=== PATIENT | male | born 1970 | race African-American/Black ===

== ENCOUNTER 2019-01-02 22:46 | Emergency (ER) | payer OTHER | END 2019-01-02 22:50 | disposition left against medical advice (07) | LOC: M.ERS 22:46 | DX: Z53.21 Procedure and treatment not carried out due to patient leaving prior to being seen by health care provider (principal) ==

== ENCOUNTER 2019-01-26 17:12 | Emergency (ER) | payer OTHER ==
[~2019-01-26] VITALS: Ht 172.7 cm; Wt 79.4 kg
[2019-01-26] MEDS ORDERED: CLONIDINE0.1 PO (17:20)
[2019-01-26] MEDS ORDERED: BENADRYL25 MG PO (18:02)
[2019-01-26] MEDS ORDERED: PREDNISONE 20 M20 MG PO (18:02)
[2019-01-26] MEDS ORDERED: PEPCID20 MG PO (18:02)
[2019-01-26 18:22] VITALS: BP 143/84
== END 2019-01-26 18:23 | disposition home or self-care (01) ==
LOC: M.ERS 17:12
DX: T78.1XXA Other adverse food reactions, not elsewhere classified, initial encounter (principal); I10 Essential (primary) hypertension; Z88.6 Allergy status to analgesic agent; Z91.013 Allergy to seafood; X58.XXXA Exposure to other specified factors, initial encounter